=== PATIENT | male | born 1970 ===

== ENCOUNTER 2018-01-31 11:53 | Outpatient (CLI) | payer BC ==
--- NOTE | 2018-01-31 15:21 | Diagnostic Imaging Report ---
Indication: Cough Technique: 2 views of the chest Comparison: None Findings: There is slight interstitial prominence with a somewhat nodular appearance, the latter more suggested on the lateral than on the PA view. The lungs and pleural spaces are otherwise clear. Heart size is normal. Impression: Questionable micronodular interstitial disease. If real, nonspecific as regards etiology. High-resolution chest CT may be useful for better evaluation. Correlate with clinical findings No acute process otherwise
== END 2018-01-31 13:53 | disposition home or self-care (01) ==
LOC: RAD 11:53
DX: Z01.818 Encounter for other preprocedural examination (principal); R05 Cough
CPT/HCPCS: 71046